=== PATIENT | female | born 1935 | race Caucasian/White ===

== ENCOUNTER 2020-09-05 08:35 | Inpatient (IN) | payer OTHER ==
[~2020-09-05] VITALS: Ht 157.5 cm; Wt 45.4 kg
[2020-09-05 10:04] LABS: HEMATOCRIT 39.7 % (37.0-47.0); HEMOGLOBIN 12.4 gm/dL (12.0-15.0); MCH 31.8 pg (26.0-34.0); MCHC 31.3 g/dL (28.0-37.0); MCV 101.7 fL (80.0-100.0); PLATELET COUNT 281 thou/uL (150-400); RBC 3.91 mil/uL (4.20-5.00); RDW 16.5 % (10.5-14.5); WBC 10.5 thou/uL (4.0-11.0)
[2020-09-05 10:15] LABS: CALCIUM 10.6 mg/dL (8.5-10.1); CREATININE 3.6 mg/dL (0.6-1.0); POTASSIUM 4.8 mmol/L (3.5-5.1)
[2020-09-05 10:25] LABS: ALBUMIN 3.2 g/dL (3.4-5.0); DIRECT BILIRUBIN 0.1 mg/dL (<0.1-0.2); TOTAL BILIRUBIN 0.5 mg/dL (0.2-1.0); TOTAL PROTEIN 7.4 g/dL (6.4-8.2); TROPONIN-I 0.12 ng/mL (<0.06)
[2020-09-05 10:37] LABS: URINE BLOOD TRACE (Negative); URINE CLARITY CLEAR; URINE COLOR YELLOW; URINE GLUCOSE-RANDOM* NEGATIVE (Negative); URINE KETONES NEGATIVE (Negative); URINE LEUKOCYTES-REFLEX NEGATIVE (Negative); URINE NITRITE-REFLEX NEGATIVE (Negative); URINE PROTEIN (DIPSTICK) NEGATIVE (Negative); URINE SPECIFIC GRAVITY >= 1.030 (1.005-1.035); URINE UROBILINOGEN 0.2 E.U./dl (0.2-1.0)
[2020-09-05] MEDS ORDERED: HALDOL5 MG/1 ML IV PUSH (10:37)
[2020-09-05] MEDS ORDERED: DILAUDID1 MG/1 M1 IM (10:38)
[2020-09-05 10:40] LABS: ICTOTEST (BILI CONFIRMATORY) Negative (Negative); URINE BILIRUBIN NEGATIVE (Negative)
[2020-09-05] MEDS ORDERED: LORAZEPAM 2MG2 MG/M1 IV PUSH (10:40)
[2020-09-05] MEDS ORDERED: ARTIFICIAL SALIVA BUCCAL (10:41)
[2020-09-05] MEDS ORDERED: ARTIFICIAL TEAR1510 OPHTHALMIC (10:42)
[2020-09-05] MEDS ORDERED: GENTLE LAXATIVE5 M1 RECTAL (10:44)
[2020-09-05] MEDS ORDERED: TYLENOL325 MG RECTAL (10:44)
[2020-09-05] MEDS ORDERED: HYOSCYAMIN0.125 MG/1 PO (10:46)
[2020-09-05] MEDS ORDERED: ATIVAN2 MG/1 ML IV PUSH (10:46)
[2020-09-05 11:13] LABS: NUCLEATED RBCS 1 /100WBC; PLATELET ESTIMATE NORMAL
--- NOTE | 2020-09-05 12:09 | NUR ---
DR GUZMÁN AT BEDSIDE TO TALK WITH DAUGHTER OF PLAN OF CARE
[2020-09-05 12:16] LABS: CHOLESTEROL 241 mg/dL (<200); HDL CHOLESTEROL 35 mg/dL (>40); LDL CHOLESTEROL 147 mg/dL (<100); TC:HDL 6.9 Ratio (Not establshd); TRIGLYCERIDE 299 mg/dL (<150); VLDL 60 mg/dL (<40)
[2020-09-05 13:16] LABS: FOLIC ACID 19.7 ng/mL (8.6-58.9)
[2020-09-05 14:52] VITALS: BP 107/65
--- NOTE | 2020-09-05 17:34 | NUR ---
84 year old female brought in via EMS ground and daughter in the ED states pt has been in and out of the hospital since a ground level fall 07/14, admitted to [facility]. From there she went to SNF but has continually declined. She's been admitted to [facility] twice in the last few weeks, diagnosed with aspiration pneumonia. Daughter was told she was close to dying, agreeable with palliative care and was [facility] one week ago. Since that time, pt has been receiving scheduled sedatives without PO intake. Daughter is worried that she's getting dehydrated and does not feel like this is the care that she wants for her. The patient has been admitted to Dr. Moran with severe hydration and protein calorie malnutrition and listed as a DNR. Called and spoke with daughter Whit Mcdonald at [phone] listed as next of kin and notification republican. Call to daughter and notified patient had been at [facility] where she had the patient discharged today. Daughter did revoke hospice and will email me the revocation which has been done. (CM will then upload into the [employer] system via [employer]). Daughter understands hospice and is not opposed to this again in the future but "disagreed with their philosophy". Daughter then stated the patient had originally been at [facility]. Daughter stated she will be more than happy to look at placement upon completion of acute care services and will "think" about hospice in the future. For now daughter would like the patient to stabilize, transfer to a facility and she will follow needs of her mother at a facility. CM will continue to follow.
[2020-09-05 17:41] VITALS: BP 121/72
--- NOTE | 2020-09-05 18:03 | NUR ---
ATTEMPTED TO CALL REPORT, NURSE IS WITH A PT AND WILL CALL BACK.
[2020-09-05 18:31] VITALS: BP 121/72
[2020-09-05 20:14] VITALS: BP 119/56
--- NOTE | 2020-09-06 02:30 | NUR ---
PT CAME TO THE UNIT AT AROUND 1900 HRS. RESPONDS TO TACTILE STIMULI, OPENS EYES, MOANS INTERMITTENTLY. PT REPOSITIONING PROVIDED. NICHOLS IN PLACE TO D/D WITH DARK YELLOW URINE.PT HAD A BM. ORAL CARE PROVIDED. SHE HAS A CONGESTED COUGH. ON /NC TO KEEP SATS ABOVE 92%.CONTINUES ON IVF.FREQUENT CHECKS PROVIDED.
[2020-09-06 07:22] LABS: ALBUMIN 2.5 g/dL (3.4-5.0); CALCIUM 9.5 mg/dL (8.5-10.1); MAGNESIUM 2.5 mg/dL (1.8-2.4); POTASSIUM 4.3 mmol/L (3.5-5.1); TOTAL BILIRUBIN 0.5 mg/dL (0.2-1.0)
[2020-09-06 07:28] LABS: CREATININE 2.6 mg/dL (0.6-1.0)
[2020-09-06 07:45] VITALS: BP 121/73
--- NOTE | 2020-09-06 08:56 | NUR ---
Assumed care of pt at 0700. Pt a&ox4. Hard to understand what pt is saying. Appears in discomfort. Pain pain medicine administered. IVF infusing. Q2h turn. Aguila catheter in place. Incontinent. On 2L O2. Fall precautions in place. Will continue to monitor.
[2020-09-06 16:00] VITALS: BP 123/72
[2020-09-06 19:54] VITALS: BP 134/69
--- NOTE | 2020-09-06 22:56 | NUR ---
ASSESSED AT START OF SHIFT 1900. PT ALERT TO SELF. CONFUSED. ON 2L OF O2. IV INTACT AND FLUIDS INFUSING. PT REPOSITIONED FOR COMFORT. FOLLEY INTACT. PT RESTING WELL. FALL PREC IN PLACE AND HOURLY ROUNDING DONE. REPORT GIVEN TO OTHER RN TO CONT CARE.
--- NOTE | 2020-09-07 05:03 | NUR ---
THIS NURSE ASSUMED CARE OF PATIENT AT APPROX. 2300. PATIENT ALERT TO NAME ONLY. SLEEPING OFF AND ON DURING THE NIGHT. IVF INFUSING W/O COMPLICATION. 2LNC. NICHOLS TO D/D WITH YELLOW URINE. NO S/S OF PAIN. WILL MONITOR.
[2020-09-07 08:31] VITALS: BP 136/73
[2020-09-07 11:32] LABS: HEMATOCRIT 31.5 % (37.0-47.0); HEMOGLOBIN 9.9 gm/dL (12.0-15.0); MCH 31.4 pg (26.0-34.0); MCHC 31.3 g/dL (28.0-37.0); MCV 100.2 fL (80.0-100.0); RBC 3.14 mil/uL (4.20-5.00); RDW 16.1 % (10.5-14.5); WBC 7.3 thou/uL (4.0-11.0)
[2020-09-07 11:42] LABS: ALBUMIN 2.2 g/dL (3.4-5.0); CREATININE 1.7 mg/dL (0.6-1.0); MAGNESIUM 1.9 mg/dL (1.8-2.4); POTASSIUM 3.9 mmol/L (3.5-5.1); TOTAL BILIRUBIN 0.5 mg/dL (0.2-1.0); TOTAL PROTEIN 5.6 g/dL (6.4-8.2)
[2020-09-07 17:10] VITALS: BP 124/73
--- NOTE | 2020-09-07 19:29 | NUR ---
PT CARE ASSUMED AT 0700. PT SLEPT ALL DAY AND WAS HARD TO AROUSE. SHE DID NOT EAT/ DRINK ANYTHING EITHER. Q2 TURNS. FAMILY AT BED SIDE. MAGDALENA IS STARTING TO HAVE SEDAMENT IN TUBING. ON 2 L FOR COMFORT. IV PATENT WITH NO REDNESS OR EDEMA, FLUIDS INFUSING. TAKES MEDS CRUSHED WITH APPLESAUCE. FALL PROTOCOL IN PLACE. CALL LIGHT IN REACH.
[2020-09-07 19:51] VITALS: BP 116/58
--- NOTE | 2020-09-08 05:49 | NUR ---
PATIENT ALERT AND ORIENTED X1. IVF INFUSING W/O COMPLICATION. TURNS PER ORDER. 02NC IN AND OUT PER PATIENT. NICHOLS TO D/D WITH YELLOW URINE. PATIENT TALKS OUT LOUD FROM TIME TO TIME, NOT UNDERSTANDABLE. RESTING QUIETLY AT TIME OF NOTE. WILL MONITOR.
--- NOTE | 2020-09-08 08:20 | NUR ---
Assumed care of pt at 0700. Pt resting comfortably. Does not appear in distress. IV fluids infusing. 2L O2. Aguila catheter in place. Pt tries to verbalize a few words, but they are incomprehensible. Q2h turn. Fall precautions in place. Will continue to monitor.
[2020-09-08 08:24] VITALS: BP 146/79
--- NOTE | 2020-09-08 11:39 | NUR ---
WOUND CONSULT; A SKIN TEAR WAS IDENTIFIED TO THE RIGHT UPPER ARM. THE SKIN ALREADY WAS APPROXIMATED. NO ERYTHEMA OR OTHER S/S OF INFECTION. PATIENT DENIES PROCEEDURAL PAIN. RECOMMENDATIONS; APPLY A BORDER FOAM, CHANGE M/W/F PRN DISCUSSED WITH STAFF
--- NOTE | 2020-09-08 14:05 | NUR ---
Nutrition: pt admitted with dehydration, [facility] from [facility]. High risk screen for poor intake, weight loss. Dtr revoked hospice for admission. Na+ now WNL post IVFs. Skin tear right upper arm. No weight hx available however BMI 18.3, very thin. Physician has documented severe malnutrition-RD would agree. Dtr reported concern with overmedication at her hospice facility in that pt had been receiving scheduled sedatives and no po x 1 week. Looking into a different hospice facility. Not eating, minimally responsive. As plan for continued comfort care, low nutrition risk due to no intervention planned.
--- NOTE | 2020-09-08 15:23 | NUR ---
ASSESSMENT: BECK REVIEWED CHART AND SPOKE WITH PT AND HER DAUGHTER RONNELL WHO WAS AT THE BEDSIDE. PT WAS ADMITTED FROM [facility] AND DAUGHTER REPORTS THAT THEY HAD A TERRIBLE EXPERIENCE THERE AND SHE WAS NOT ON THE SAME PHILOSOPHY THEM AND IT NOT WANTING TO RETURN. SHE REPORTS THAT PRIOR TO BEING AT THE HOSPICE HOUSE PT WAS AT [facility] AND PRIOR TO THAT WAS A LTC RESIDENT AT [facility]. DAUGHTER REPORTS SHE WISHES TO RETURN TO [facility] IF POSSIBLE AND IS OPEN TO THE IDEA OF ANOTHER HOSPICE COMPANY BUT WANTS TO SPEAK WITH PHYSICIANS FIRST. CM REACHED OUT TO [facility] AND SPOKE WITH ADMISSIONS. THEY STATE THEY DO NOT HAVE A BED OPEN UNTIL LIKELY TOMORROW BUT WERE GOING TO REACH OUT TO THE DAUGHTER TO DISCUSS. [facility] STATES THEY WORK OFTEN WITH [facility] BUT DAUGHTER CAN CHOSE [facility]. BECK ATTEMPTED TO REACH BACK OUT TO PTS DAUGHTER BUT VM WAS LEFT.
[2020-09-08 16:15] VITALS: BP 118/67
[2020-09-08 20:20] VITALS: BP 167/106
[2020-09-08 21:09] LABS: SYPHILIS AB Non Reactive (Non Reactive)
[2020-09-09 00:23] VITALS: BP 128/73
--- NOTE | 2020-09-09 05:11 | NUR ---
RECIEVED CARE OF THIS PATIENT AT 1900. PATIENT WAS SLEEPING AT THE TIME. PATIENT ALERT AND ORIENTED XSELF LATER IN SHIFT. NO SIGH OF PAIN. PATIENT AWAKE OFF AND ON DURING NIGHT TALKING TO SELF.
--- NOTE | 2020-09-09 07:48 | NUR ---
ASSUMED CARE AT 0700. PT IS A&O X1 TO SELF AND SLEEPY. PT HAS NICHOLS IN PLACE WITH CLEAR URINE. PT HAS DNR BRACELET ON WRIST. WOUND CARE ON R. UPPPER ARM WITH SALINE AND BORDERED FOAM. PT HAS LOW AIR LOSS PUMP. IV IS ON RIGHT R. FA AND SHOWS NO SIGNS OF REDNESS OR SWELLING. Q2 TURN. PT WAS SWABBED FOR MOUTH CARE. 2 L OF O2 AND TOLERATING AT 95%. PT SHOWS NO SIGNS OF PAIN, SOA. PT IS A MOUTH BREATHER.
[2020-09-09 08:34] VITALS: BP 155/88
[2020-09-09] MEDS ORDERED: LORAZEPAM I2 MG/1 M2 SUBLING (12:55)
[2020-09-09] MEDS ORDERED: MSL20MG/ML SUBLING (12:55)
[2020-09-09] MEDS ORDERED: HALOPERIDOL2 MG/1 ML PO (12:55)
--- NOTE | 2020-09-09 13:47 | NUR ---
ON-GOING ASSESSMENT: BECK REVIEWED CHART. CM MET WITH PATIENTS DAUGHTER RONNELL AT THE BEDSIDE AND PLANS ARE FOR PATIENT TO GO TO [facility] WITH HOSPICE EVAL AT ADMIT AT FACILITY. CM SPOKE WITH PTS DAUGHTER [facility] WORKS CLOSELY WITH [facility] BUT DID EDUCATE HER SHE CAN USE ANY HOSPICE COMPANY SHE CHOSES. SHE REPORTS SHE IS OK WITH [facility]. CM NOTIFIED MADDIE IN ADMISSIONS AT [facility] TO ARRANGE HOSPICE EVAL AND ADMIT AT FACILITY TODAY. CM FAXED D/C ORDERS WELL NEGATIVE COVID TEST AND OUTSIDE DNR FORM TO FACILITY. TRANSPORATION WILL BE VIA [facility]ANCE HAS BEEN ARRANGED FOR 1630. CM NOTIFIED PTS DAUGHTER RONNELL WELL MADDIE AT [facility]. BEDSIDE RN HAS THE NUMBER FOR REPORT. CHART COPY WAS ORDERED. NO FURTHER NEEDS FROM BECK AT THIS TIME.
== END 2020-09-09 16:37 | disposition hospice, inpatient (51) | DRG 682 ==
LOC: ER 08:35 → 4S 11:59 → EROBS 11:59 → 4S 18:18
PROVIDERS: Emergency Medicine; ADMIT Hospitalist; ATTEND Hospitalist
DX: N17.9 Acute kidney failure, unspecified (principal); E43 Unspecified severe protein-calorie malnutrition; J96.01 Acute respiratory failure with hypoxia; G93.41 Metabolic encephalopathy; E87.0 Hyperosmolality and hypernatremia; Z68.1 Body mass index [BMI] 19.9 or less, adult; E86.0 Dehydration; Z20.822 Contact with and (suspected) exposure to COVID-19; F03.90 Unspecified dementia, unspecified severity, without behavioral disturbance, psychotic disturbance, mood disturbance, and anxiety; Z66 Do not resuscitate; E03.9 Hypothyroidism, unspecified; R41.0 Disorientation, unspecified; N18.30 Chronic kidney disease, stage 3 unspecified; Z79.899 Other long term (current) drug therapy
CPT/HCPCS: 10195